=== PATIENT | male | born 1930 | race Caucasian/White ===

== ENCOUNTER 2017-02-26 18:59 | Observation (INO) | payer MEDICARE, OTHER ==
[2017-02-26] MEDS ORDERED: Nitroglycerin 2% Ointment 1 INCH/1 GM Packet ONE ×2 (19:24)
[2017-02-26 19:28] LABS: #Basophils 0.1 thou/uL (0.0-0.2); #Eosinphils 0.1 thou/uL (0.0-0.7); #Lymphocytes 1.8 thou/uL (1.20-3.40); #Monocytes 0.5 thou/uL (0.11-0.59); #Neutrophils 5.6 thou/uL (1.40-6.50); %Eosinophils 1.4 % (0.0-10.0); %Lymphocytes 21.8 % (21.0-51.0); %Monocytes 6.2 % (0.0-10.0); %Neutrophils 69.5 % (42.0-75.0); Hemoglobin 15.5 g/dL (14.0-18.0); Mean Corpuscular HGB CONC 33.2 g/dL (32.0-36.0); Mean Corpuscular Hemoglobin 31.1 pg (27.0-31.0); Mean Corpuscular Volume 93.4 fl (80.0-94.0); Mean Platelet Volume 6.9 fL (7.4-10.4); Platelet Count 217 thou/uL (130-400); RBC Distribution Width 11.8 % (11.5-14.5); White Blood Cell (WBC) Count 8.1 thou/uL (4.8-10.8)
[2017-02-26 19:41] LABS: ALT (SGPT) 25 U/L (8-55); AST (SGOT) 22 U/L (5-34); Albumin 4.1 g/dL (3.4-4.8); Alkaline Phosphatase 92 U/L (40-150); Anion Gap 17 mmol/L (10-20); BUN (Urea Nitrogen) 28 mg/dL (8.4-25.7); Bilirubin, Total 0.7 mg/dL (0.2-1.2); CK (CPK) 107 U/L (30-200); Calc. Creatinine Clearance 0 mL/min (70-130); Calcium 9.5 mg/dL (7.8-10.44); Carbon Dioxide 20 mmol/L (23-31); Chloride 107 mmol/L (98-107); Estimated GFR-MDRD 49; Globulin 3.1 g/dL (2.4-3.5); Glucose 140 mg/dL (83-110); Lipase 25 U/L (8-78); Potassium 3.8 mmol/L (3.5-5.1); Protein, Total 7.2 g/dL (5.8-8.1); Sodium 140 mmol/L (136-145)
[2017-02-26 19:42] LABS: CKMB 3.2 ng/mL (0-6.6); Troponin I 0.021 ng/mL (< 0.028)
--- NOTE | 2017-02-26 19:50 | RAD ---
CHEST TWO VIEWS: History: Chest pain. Comparison: 2016 FINDINGS: The lungs are clear. No pneumothorax or effusion. Cardiomediastinal silhouette and mediastinal contou r is within normal limits. Large bridging anterior osteophytes of the thoracic spine. IMPRESSION: No acute intrathoracic abnormality. POS: H
[2017-02-26 21:26] VITALS: BMI 28.7
[2017-02-26 23:00] LABS: Troponin I 0.019 ng/mL (< 0.028)
[2017-02-27] MEDS: Nitroglycerin 2% Ointment 1 INCH/1 GM Packet TOP SCH ×2 (00:18→04:29)
[2017-02-27 01:36] LABS: Troponin I 0.016 ng/mL (< 0.028)
[2017-02-27 04:41] LABS: Cardiac Risk 3.2 (Less than 4.5)
--- NOTE | 2017-02-27 06:19 | HP ---
CHIEF COMPLAINT: Chest pain. HISTORY OF PRESENT ILLNESS: He is an 86-year-old man with history of bypass in 2016, complains of ch est pain for the last few days on the left side. Pain is intermittent pain, lasted for 2-3 minutes a nd feel like muscle ache, persistent, no relation with activity. No diaphoresis, no nausea, no short of breath. Last stress was done in 2017 was normal. Patient saw his gas cutter a few days ago an d blood pressure running high. Because of persistent chest pain, he decided to come to the ER. He w ent to [facility]. Over there, first set of troponin came back negative, but bec ause of his symptoms, tried to put in the hospital for chest pain rule out. The patient is a good hi storian. PAST MEDICAL HISTORY: History of bypass, hypertension, and hyperlipidemia. PAST SURGICAL HISTORY: Bypass x4 vessel surgery, appendectomy, cholecystectomy, and hernia repair. SOCIAL HISTORY: Denies alcohol use, drug use, and no smoking history. PERSONAL HISTORY: He lives alone. ALLERGIES: He is not allergic to any medication except ADHESIVE TAPE. CURRENT MEDICATION: He takes at home, omeprazole 20 mg every day, tamsulosin 0.4, atorvastatin 10 mg , lisinopril 20, amlodipine 5, metoprolol 50 mg, furosemide 40 mg daily, finasteride 5 mg, aspirin 32 5 every day, saw palmetto, and potassium gluconate. FAMILY HISTORY: Noncontributory. REVIEW OF SYSTEMS: Constitutional: Negative for fever and chills. Eyes: Negative for eye pain and recent blurry vision. ENT: Negative for sore throat and rhinorrhea. Cardiovascular: He had some chest pain, no diaphoresis, no palpitation, no PND, orthopnea. Respiratory: Negative for cough, whe ezing. Gastrointestinal: Negative for nausea, vomiting, abdominal pain. Genitourinary: Male. Den ies dysuria, hematuria, hesitancy. Musculoskeletal: Denies any back pain. Skin: Normal turgor, no rash. Neurologic: Denies any focal deficit. Psychiatric: Denies any anxiety problem. All other review of systems negative except in the history and physical. PHYSICAL EXAMINATION: GENERAL: When I examined, he was an elderly man looking younger than the age. VITAL SIGNS: Pulse 85, blood pressure 152/73, respirations 16, temperature 98.4. HEENT: Atraumatic, normocephalic. Pupils are round and reactive. Extraocular movements intact. Ea rs, nose, throat, normal. Tongue mucosa moist. NECK: Supple, no JVD, no thyromegaly, no carotid bruit. Trachea midline. No lymphadenopathy. CHEST: Has normal vascular breathing, no added sounds. No wheezing, no crackles. Chest wall, he cunningham s tenderness in left anterior chest wall. CARDIOVASCULAR: He has S1, S2 audible. No S3 or S4. Grade 2/6 systolic murmur. ABDOMEN: Soft. Bowel sounds audible, no organomegaly, no guarding, no rigidity. EXTREMITIES: No pedal edema. No cyanosis or clubbing. NEUROLOGIC: Alert x2. No focal deficit. PSYCHIATRIC: Normal mood. SKIN: Normal turgor. EKG normal sinus rhythm, 76. ST abnormality in V4-6; When compared with old EKG, no new changes. ER meds given in the ER, nitroglycerin paste and aspirin over there. LABORATORY DATA: Sodium 140, potassium 3.8, chloride 107, carbon dioxide 20, BUN 28, creatinine 1.3, calcium 9.5, AST 22, ALT 25. Troponin 0.021. Total protein 7.2, albumin 4.1. WBC 8.1, hemoglobin 15.5, MCV 93.4, platelets 217,000. ASSESSMENT AND PLAN: 1. Chest pain with history of coronary artery disease, bypass. We will put in the hospital to rule out [place] with serial troponins. Continue home medication aspirin, nitroglycerin, and intravenous morph ine p.r.n. 2. History of hypertension. Continue lisinopril and amlodipine. 3. Hyperlipidemia. Continue atorvastatin. 4. History of coronary artery disease. Continue aspirin, metoprolol. 5. Deep venous thrombosis prophylaxis with Lovenox.
[2017-02-27] MEDS ORDERED: Metoprolol Tartrate 25 MG TAB PO SCH (09:00)
[2017-02-27] MEDS ORDERED: Aspirin 325 MG TAB PO SCH (09:00)
[2017-02-27] MEDS ORDERED: Oxymetazoline HCl 0.05% ( 15 ML ) NASAL PRN (11:19)
[2017-02-27] MEDS ORDERED: Fluticasone Propionate Nasal Spray 16 gm Bottle NASAL SCH ×2 (11:45→21:00)
[2017-02-27 15:29] VITALS: BP 156/73; TEMP 98.3
--- NOTE | 2017-02-27 16:45 | CON ---
DATE OF CONSULTATION: 02/27/2017 PRIMARY CARE PHYSICIAN: Dr. Tigre Allen PRIMARY SHANK PAPERER: Dr. Jacquelyn Saenz REASON FOR CONSULTATION: Chest pain. HISTORY OF PRESENT ILLNESS: Mr. Acosta is an 86-year-old male with a significant history of coronary artery disease, status post CABG x4 in 2015, and severe peripheral artery disease, hypert ension, and moderate to severe mitral regurgitation. The patient [facility] on Monday evening due to tenderness to the left chest by palpa tion and high blood pressure up to the 180s with a slight headache. The patient has experienced inte rmittent tenderness to the left chest by palpitation for a couple of weeks; however, the symptoms bec salvador worse on last Monday with high blood pressure. The patient decided to present to the emergency department for further evaluation. The patient denies shortness of breath, dizziness, lightheadedne ss, nausea, vomiting, diaphoresis or any other cardiac symptoms. 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 During that time he also denies any c ardiac symptoms. He received nitro paste last night which did not improve his symptoms. This mornin g during the initial Cardiology consult assessment, he reports tenderness to the left chest about 3 c m diameter by palpitations. He has not taken any Tylenol or ibuprofen. The patient's troponin level has been negative. The patient's EKG showed no ST segment change or T-wave inversions. The patient underwent CABG x4 in November 2013 with KAHN to LAD, RGSV to second diagonal, RGSV to LAMU S and RGSV to proximal posterior descending artery. The patient's last echocardiogram was in 08/2016 which shows EF 50-55%, moderate to severe left atrial enlargement, moderate to severe mitral valve r egurgitation, mild tricuspid regurgitation, moderate calcification of aortic valve and mild to modera te aortic valve stenosis. The patient underwent bilateral lower extremity runoff in 01/2017 which sh owed severe bilateral lower extremity disease involving the anterior and posterior tibial on bilatera l sides with patent peroneal arteries throughout. At this moment the patient is treated medically fo r those symptoms. The patient had a carotid Doppler study in 11/2016 which showed some mild disease in the bilateral CCA, and bilateral antegrade flow and no CCA, ICA or ECA stenosis. PAST MEDICAL HISTORY: 1. Coronary artery disease. 2. Hypertension. 3. Heart murmur. 4. Heartburn/reflux. 5. Hyperlipidemia. 6. Systolic heart failure. 7. Chronic back pain. PAST SURGICAL HISTORY: Coronary artery bypass surgery in 11/2015, right inguinal hernia in the , appendectomy in 1964. Several cervical spine surgeries in 2003, cholecystectomy 2001. Again back surgery in 2005, bilateral carpal tunnel repair at age of 76. FAMILY HISTORY: The patient's father at age of 65 due to lung cancer. According to patient his father was really a heavy smoker. The patient's mother at age of 89 due to colon cance r, but there are no significant family history of coronary artery disease, hypertension, diabetes or CVA, stroke. SOCIAL HISTORY: The patient is . The patient lives by himself. He has 1 daughter who is wel l, but lives out of state. He has in-laws who lives close by and help each other. 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 He quit drinking alcohol in 2008. He denied any illicit drug abuse. He enj oys 3-4 cups of coffee and ice tea daily. He is still very active working at the [employer]. He owns a [employer]. ALLERGIES: He is allergic to all adhesive tapes. HOME MEDICATIONS: Aspirin 325 mg once a day, atorvastatin 10 mg once a day fish oil 360/1200 mg once a day, Lasix 40 mg once a day, metoprolol 50 mg twice a day, mirtazapine 30 mg every bedtime, multiv itamin once a day, Norvasc 5 mg 1 tablet twice a day, omeprazole 20 mg once a day, Saw [place] 500 m g once a day, Flomax ER 0.4 mg once a day. REVIEW OF SYSTEMS: The following complete review of systems was negative, unless otherwise mentioned in the HPI or below. CONSTITUTIONAL: Weight loss or gain, sense of well-being, ability to conduct usual activity, exercis e tolerance. SKIN: Rash, itching change of hair growth or loss, nail changes, breast lumps, tenderness, swelling, nipple discharge. HEENT: Headache, vertigo, lightheadedness, nose bleeding, cold, obstruction, discharge, dental diffi culty, gingival bleeding, denture, neck stiffness, pain, tenderness, mass in the thyroid or other are as. CARDIOVASCULAR: Substernal distress, but positive for precordial pain, but negative to palpitations, syncope, dyspnea on exertion, orthopnea, nocturnal dyspnea, edema or cyanosis, psychosis, positive f or claudication bilaterally. RESPIRATORY: Pain, shortness of breath, wheezing, stridor, cough, hemoptysis. GASTROINTESTINAL: Poor appetite, dysphagia, indigestion, abdominal pain, heartburn, nausea, vomiting , jaundice, constipation, or diarrhea, blood in the stool, abnormal stool, recent change in bowel hab it. GENITOURINARY: Urgency, frequency, dysuria, nocturia, hematuria, polyuria, unusual color of urine. MUSCULOSKELETAL: Positive for chronic back pain and uses a cane for balance, but negative for swelli ng, redness or heat of muscle or joint, limitation of motion, muscular weakness, atrophy, cramps. NEUROLOGIC: Seizure, conversion paralysis, tremor, incoordination, difficulty with memory or speech. PSYCHIATRIC: Emotional problem, anxiety, depression, previous psychiatric care, history of hallucina tion. PHYSICAL EXAMINATION: VITAL SIGNS: Blood pressure 131/71, heart rate 73 with sinus rhythm, respiratory rate is 18, O2 sat 95% with room air, temperature 97.8. GENERAL: Well-developed, well-nourished without acute distress. HEAD: Normocephalic, atraumatic. EYES: Extraocular muscle movement intact. ENT: Oral and nasal mucosa are moist and without lesion. NECK: No JVD. Neck is supple and normal range of motion. LUNGS: Clear to auscultate bilaterally. No wheezing, rales or rhonchi noted. CARDIOVASCULAR: Regular rate and rhythm. There is normal S1, S2. There are no S3, S4. There are m urmurs to bilateral mid sternal borders, but no hive, thrill or bruits are noted. There are 1+ pulse s in bilateral dorsal pedis, posterior tibial, 2+ to left popliteal, 1+ to right popliteal. Carotid pulse present without bruit or thrill. No edema in the bilateral lower extremities. ABDOMEN: Soft, nontender. No mass to palpate, nondistended. Bowel sounds are present. MUSCULOSKELETAL: There is tenderness to palpate in the left chest on the left midsternal border, but no radiation to the left extremities. EXTREMITIES: Able to move all extremities. No calf tenderness at this moment. SKIN: Warm and dry. No skin rash, lesion or bruise noted. NEUROLOGIC: Alert, oriented x4, awake, normal affect, nonfocal, psychiatric mood, affect normal. EKG: A 12-lead EKG in the ER shows normal sinus rhythm with first degree AV block and no ST segment change or T-wave inversion and no significant change from EKG in 01/2017 which was taken [address] Dr. Byrd's office. The patient has 5 pauses from 2 to 3 o'clock this morning, the longest one was 3 seconds. However, a fter 3 o'clock he has not had any pauses. The patient's chest x-ray shows no acute intrathoracic abn ormalities. LABORATORY: WBC 8.1, hemoglobin 15.5, hematocrit 46.7, platelet 217. Sodium 140, potassium 3.8, BUN 28, creatinine 1.37, glucose 140, AST 22, ALT 25, total cholesterol is 119, triglyceride 132, HDL 37 , LDL 56 , and a CK-MB 3.2, troponin, 0.021, 0.019, 0.016. ASSESSMENT AND PLAN: 1. Chest pain, per patient's report the patient symptoms is atypical chest pain, possible local pain from musculoskeletal at the left chest. The patient's troponin has been negative. There are no EKG change. We would like to resume the patient's diet and I would like to discuss with Dr. Saenz about the patient's treatment plan. However, I believe the patient does not need any further cardiac studi es at this moment. 2. Coronary artery disease with a history of a coronary artery bypass graft x4 in 2016. We would li ke to continue to monitor. 3. History of pauses. The patient had several episodes of pauses from 2:00 a.m. to 3 a.m. this morn ing. We would like to continue to monitor. Possibly patient needs an event monitor when the patient is discharged. 4. Hypertension. Blood pressures have been stable with current medication. We like to continue to monitor. 5. Hyperlipidemia. Patient on atorvastatin. We like to continue the medication. 6. Chronic kidney disease. Patient's creatinine level has been stable at this moment, we like to co ntinue to monitor. 7. Severe peripheral artery disease, bilateral runoff in 01/2017 shows severe bilateral lower extrem ity disease; however, due to patient's age, we like to treat medically and continue to monitor. 8. Moderate to severe mitral valve regurgitation and aortic valve stenosis. The patient's condition is stable at this time. We like to continue to monitor. Thank you very much for allowing Cardiology Service to participate in care of this patient. We will follow along with the patient care team and make further recommendations as appropriate.
--- NOTE | 2017-02-27 22:41 | ADD-CON ---
DATE OF CONSULTATION: 02/27/2017 Please refer to the notes already dictated by the nurse practitioner. I have seen and evaluated the patient and discussed this also with the nurse practitioner. INDICATION FOR CONSULTATION: An 86-year-old gentleman who was admitted with chest discomfort, somewh at atypical in nature. This very pleasant 86-year-old gentleman has undergone bypass surgery in 2016 . He has had no significant problems since that time. He does have peripheral vascular disease whic h has been stable, has been monitored. He had complained of some left upper anterior chest discomfor t which is worse with palpation. Otherwise, he denies any significant complaints. He did have some problems with blood pressure. Recently, he was somewhat hypertensive. He was seen in the emergency room. I believe he was given a nitroglycerin patch and the blood pressure has improved, but he has n ot been given his routine daily medications. Otherwise, he is not complaining of any other significa nt problems. His chest discomfort is almost completely resolved but is bottom steep tender to palpation. Hellen mccracken denied any other significant cardiac problems at this time. He does have some other risk factors w hich include hypertension and this will also be dealt with, but he needs to go back on his routine me dications and then most likely the blood pressure will resolve, will be coming back to normal. He is to see me in the office in a couple of weeks. Already, he has an appointment set up. PHYSICAL EXAMINATION: GENERAL: Otherwise, reveals an elderly gentleman who is in no acute distress at this time. VITAL SIGNS: His blood pressure is in the 150/78 range, heart rates in the 70s, which shows a sinus rhythm. CHEST: Clear to auscultation. CARDIOVASCULAR: Exam reveals a regular rate and rhythm. He has a normal S1, S2. He does not have a ny significant heaves or thrills. He has a very soft systolic murmur at the apex. ABDOMEN: Soft and nontender. Positive bowel sounds are present. EXTREMITIES: Showed no clubbing or cyanosis. He has no significant lower extremity edema. NEUROLOGIC: The patient appears to be fully intact. LABORATORY DATA: His EKG shows first-degree heart block with normal sinus rhythm. No significant ch anges. Cardiac enzymes are negative at this time. IMPRESSION: 1. Atypical left anterior chest discomfort which apparently is improving. There is no indication th e patient suffered a myocardial infarction. Cardiac enzymes are unremarkable. EKG is unchanged. 2. Hypertension. Need to resume his home medications and then the patient can most likely be discha rged if the blood pressure remains stable and I will see him back in the office. 3. History of hyperlipidemia. He will continue his present medications. 4. History of coronary artery disease and bypass surgery. This has remained stable. I will be more than happy to continue to follow the patient on the outpatient service, but at this time, he most alanna nathan is stable and ready for discharge.
== END 2017-02-27 18:20 | disposition home or self-care (01) ==
LOC: SCSER 18:59 → 2SW 19:56
PROVIDERS: ADMIT Family Medicine; ATTEND Family Medicine
DX: R07.89 Other chest pain (principal); E78.5 Hyperlipidemia, unspecified; I25.10 Atherosclerotic heart disease of native coronary artery without angina pectoris; I73.9 Peripheral vascular disease, unspecified; I07.1 Rheumatic tricuspid insufficiency; I34.0 Nonrheumatic mitral (valve) insufficiency; I35.0 Nonrheumatic aortic (valve) stenosis; I13.0 Hypertensive heart and chronic kidney disease with heart failure and stage 1 through stage 4 chronic kidney disease, or unspecified chronic kidney disease; I50.20 Unspecified systolic (congestive) heart failure; N18.9 Chronic kidney disease, unspecified; Z87.891 Personal history of nicotine dependence; Z80.0 Family history of malignant neoplasm of digestive organs; Z80.1 Family history of malignant neoplasm of trachea, bronchus and lung; Z79.82 Long term (current) use of aspirin; Z79.899 Other long term (current) drug therapy; Z91.048 Other nonmedicinal substance allergy status; Z90.49 Acquired absence of other specified parts of digestive tract; Z90.89 Acquired absence of other organs; Z95.1 Presence of aortocoronary bypass graft; Z98.890 Other specified postprocedural states
CPT/HCPCS: 71046; 80053; 80061; 82550; 82553; 83690; 84484 ×3; 85025; 93005; 94760; 99285; G0378; 36415; A4216